=== PATIENT | female | born 1945 | race African-American/Black ===

== ENCOUNTER 2017-11-08 14:45 | Inpatient (IN) ==
[2017-11-08] MEDS ORDERED: ASPIRIN 325 MG TABLET PO STA (16:53)
[2017-11-08] MEDS ORDERED: NITROGLYCERIN SL 0.4 MG TABLET SL PRN (16:53)
[2017-11-08] MEDS ORDERED: ASPIRIN 325 MG TABLET ONE (17:01)
[2017-11-08 17:56] LABS: Basophils % 0.4 % (0.0-0.8); Eosinophils % 0.4 % (0.00-10.9); Hematocrit 37.2 VOL% (35.7-47.0); Hemoglobin 12.3 GM/DL (12.0-16.0); Immature Granulocytes % 0.1 %; Immature Granulocytes Absolute 0.01 #; Lymphocytes # 1.8 10*3/uL (1.4-4.0); Lymphocytes % 26.5 % (21.3-54.2); Mean Corpuscular HGB Conc 33.1 GM/DL (32-36); Mean Corpuscular Hemoglobin 23 PG (27-34); Mean Corpuscular Volume 70.6 FL (87-102); Monocytes # 0.6 10*3/uL (0.11-0.8); Monocytes % 8.3 % (1.7-12.7); Neutrophils # 4.3 10*3/uL (1.4-7.4); Neutrophils % 64.3 % (38.7-73.9); Platelet Count 171 T/CUMM (130-400); Red Blood Count 5.27 MC/CUMM (3.8-5.5); Red Cell Distribution Width 17.5 % (9.3-17.3); White Blood Count 6.7 T/CUMM (4-12)
[2017-11-08 18:05] LABS: INR 1.6; PT Patient Result 16.4 SECS
[2017-11-08 18:24] LABS: Albumin 3.2 G/DL (3.4-5.0); Bilirubin,Total 0.8 MG/DL (0.2-1.0); Calcium 8.9 MG/DL (8.5-10.1); Potassium 3.7 MMOL/L (3.5-5.1); Total Protein 7.1 G/DL (6.4-8.3)
[2017-11-08] MEDS ORDERED: MORPHINE 2 MG/1 ML SYRINGE IV PRN (23:10)
[2017-11-09] MEDS: PROMETHAZINE 25 MG TABLET PO PRN ×2 (03:16→09:35)
[2017-11-09] MEDS ORDERED: POLYETHYLENE GLYCOL POWDER 17 GM PACK PO PRN (10:49)
[2017-11-09] MEDS ORDERED: PROMETHAZINE 25 MG TABLET PO PRN (10:49)
[2017-11-09] MEDS ORDERED: DEXTROSE 50% 25 GM/50 ML VIAL IV PRN (10:55)
[2017-11-09] MEDS ORDERED: GLUCAGON 1 MG VIAL IM PRN (10:55)
[2017-11-09] MEDS ORDERED: ONDANSETRON ODT 4 MG TABLET PO PRN (11:30)
[2017-11-09] MEDS ORDERED: MELATONIN 3 MG TABLET PO PRN (11:30)
[2017-11-09] MEDS: ALBUTEROL/IPRATROPIUM 3 ML NEB RESP TX SCH ×2 (11:36→19:55)
[2017-11-09] MEDS: INSULIN REGULAR 100 UNIT/ML SUBCUT SCH ×3 (12:40→21:03)
[2017-11-09] MEDS: ESCITALOPRAM 10 MG TABLET PO SCH (12:41)
[2017-11-09] MEDS: METOPROLOL SUCCINATE XL 25 MG TABLET PO SCH (12:41)
[2017-11-09] MEDS: DOCUSATE SODIUM 100 MG CAPSULE PO SCH (12:41)
[2017-11-09] MEDS: DILTIAZEM CD 180 MG CAPSULE PO SCH (12:41)
[2017-11-09] MEDS: PANTOPRAZOLE 40 MG TABLET PO SCH (12:41)
[2017-11-09 15:31] LABS: Apearance,Urine CLEAR (Clear); Bacteria,Urine Occasional /HPF (Few); Bilirubin,Urine Negative (Negative); Blood, Urine Negative (Negative); Glucose,Urine (UA) >=500 mg/dL (Negative); Ketones,Urine Negative (Negative); Nitrite,Urine Negative (Negative); Protein,Urine Negative; Squamous Epithelial Cell,Urine Occasional /HPF (0-10); Urine Color Straw (Yellow); Urine Specific Gravity 1.002 (1.001-1.035); WBC,Urine <1 /HPF (0-6)
[2017-11-09] MEDS: BACLOFEN 10 MG TABLET PO SCH ×2 (15:36→20:15)
[2017-11-09] MEDS: SIMETHICONE CHEW 125 MG TABLET PO SCH (15:36)
[2017-11-09] MEDS: WARFARIN 5 MG TABLET PO SCH (18:00)
[2017-11-10 07:11] LABS: INR 1.6; PT Patient Result 16.7 SECS
[2017-11-10] MEDS: ALBUTEROL/IPRATROPIUM 3 ML NEB RESP TX SCH ×2 (07:38→21:00)
[2017-11-10 07:41] LABS: Potassium 3.8 MMOL/L (3.5-5.1); Risk Ratio 2.58; VLDL CHOLESTEROL 11.4 MG/DL
[2017-11-10] MEDS: SIMETHICONE CHEW 125 MG TABLET PO SCH ×2 (08:37→15:35)
[2017-11-10] MEDS: DOCUSATE SODIUM 100 MG CAPSULE PO SCH (08:37)
[2017-11-10] MEDS: PANTOPRAZOLE 40 MG TABLET PO SCH (08:37)
[2017-11-10] MEDS: BACLOFEN 10 MG TABLET PO SCH ×3 (08:37→22:46)
[2017-11-10] MEDS: ESCITALOPRAM 10 MG TABLET PO SCH (08:37)
[2017-11-10] MEDS: METOPROLOL SUCCINATE XL 25 MG TABLET PO SCH (09:29)
[2017-11-10] MEDS: DILTIAZEM CD 180 MG CAPSULE PO SCH (09:29)
[2017-11-10] MEDS: INSULIN REGULAR 100 UNIT/ML SUBCUT SCH ×4 (09:30→22:46)
[2017-11-10] MEDS ORDERED: LIDOCAINE 2% 5 ML VIAL ONE (12:44)
[2017-11-10] MEDS ORDERED: PROPOFOL 200 MG/20 ML VIAL IV ONE (12:44)
[2017-11-10] MEDS: WARFARIN 5 MG TABLET PO SCH (17:41)
[2017-11-10] MEDS ORDERED: SKIN HEALING OINT (AQUAPHOR) 50 GM TUBE TOP PRN (17:44)
[2017-11-11 03:49] LABS: INR 1.9; PT Patient Result 19.2 SECS
[2017-11-11 04:17] LABS: Risk Ratio 2.57
[2017-11-11 04:18] LABS: Calcium 8.1 MG/DL (8.5-10.1); Potassium 3.6 MMOL/L (3.5-5.1)
[2017-11-11] MEDS: ALBUTEROL/IPRATROPIUM 3 ML NEB RESP TX SCH (07:41)
[2017-11-11] MEDS: DILTIAZEM CD 180 MG CAPSULE PO SCH (09:09)
[2017-11-11] MEDS: METOPROLOL SUCCINATE XL 25 MG TABLET PO SCH (09:09)
[2017-11-11] MEDS: BACLOFEN 10 MG TABLET PO SCH ×2 (09:10→16:06)
[2017-11-11] MEDS: SIMETHICONE CHEW 125 MG TABLET PO SCH ×2 (09:10→16:07)
[2017-11-11] MEDS: DOCUSATE SODIUM 100 MG CAPSULE PO SCH (09:10)
[2017-11-11] MEDS: PANTOPRAZOLE 40 MG TABLET PO SCH (09:10)
[2017-11-11] MEDS: ESCITALOPRAM 10 MG TABLET PO SCH (09:10)
[2017-11-11] MEDS: INSULIN REGULAR 100 UNIT/ML SUBCUT SCH (16:06)
[2017-11-11 17:01] VITALS: BP 162/77
[2017-11-12] MEDS ORDERED: WARFARIN 4 MG TABLET PO SCH (18:00)
== END 2017-11-11 16:27 | disposition home health service (06) | DRG 313 ==
LOC: N.ED 14:45 → N.EDINP 14:45 → N.2E 20:07
PROVIDERS: ADMIT Internal Medicine; ATTEND Internal Medicine

== ENCOUNTER 2018-11-20 13:32 | Inpatient (IN) ==
[2018-11-20] MEDS ORDERED: methylPREDNISolone SOD SUC 125 MG/2 ML VIAL IV STA (15:15)
[2018-11-20] MEDS ORDERED: ALBUTEROL/IPRATROPIUM 3 ML NEB RESP TX STA (15:15)
[2018-11-20] MEDS ORDERED: methylPREDNISolone SOD SUC 125 MG/2 ML VIAL ONE (15:39)
[2018-11-20 15:52] LABS: Basophils % 0.5 % (0.0-0.8); Eosinophils # 0.1 10*3/uL (0.0-0.87); Eosinophils % 2.2 % (0.00-10.9); Hemoglobin 10.1 GM/DL (12.0-16.0); Immature Granulocytes % 0.5 %; Immature Granulocytes Absolute 0.03 #; Lymphocytes # 2.1 10*3/uL (1.4-4.0); Lymphocytes % 33.2 % (21.3-54.2); Mean Corpuscular HGB Conc 30.6 GM/DL (32-36); Mean Corpuscular Hemoglobin 22 PG (27-34); Mean Corpuscular Volume 71.7 FL (87-102); Monocytes # 0.8 10*3/uL (0.11-0.8); Monocytes % 13.1 % (1.7-12.7); NRBC # 0.02 10*3/uL; Neutrophils # 3.2 10*3/uL (1.4-7.4); Neutrophils % 50.5 % (38.7-73.9); Platelet Count 151 T/CUMM (130-400); Red Cell Distribution Width 19.5 % (9.3-17.3); White Blood Count 6.4 T/CUMM (4-12)
[2018-11-20] MEDS ORDERED: FUROSEMIDE 40 MG/4 ML VIAL IV STA (16:04)
[2018-11-20 16:29] LABS: Albumin 2.8 G/DL (3.4-5.0); Bilirubin,Total 0.6 MG/DL (0.2-1.0); Calcium 8.3 MG/DL (8.5-10.1); Osmolality,Calculated 283.8 MOS/KG (273-304); Potassium 4.9 MMOL/L (3.5-5.1); Total Protein 6.4 G/DL (6.4-8.3)
[2018-11-20] MEDS ORDERED: FUROSEMIDE 40 MG/4 ML VIAL ONE (16:31)
[2018-11-20 18:15] LABS: INR 2.3
[2018-11-20 18:19] LABS: PT Patient Result 25.2 SECS
[2018-11-20 19:38] LABS: Troponin I < 0.015 NG/ML (0.00-0.045)
[2018-11-20] MEDS ORDERED: FUROSEMIDE 40 MG/4 ML VIAL IV ONE (22:30)
[2018-11-20] MEDS ORDERED: PROMETHAZINE 25 MG TABLET PO PRN (22:31)
[2018-11-20] MEDS ORDERED: POLYETHYLENE GLYCOL POWDER 17 GM PACK PO PRN (22:31)
[2018-11-20] MEDS ORDERED: ACETAMINOPHEN 325 MG TABLET PO PRN (22:31)
[2018-11-20] MEDS ORDERED: cloNIDine 0.1 MG TABLET PO PRN (22:31)
[2018-11-20] MEDS ORDERED: MELATONIN 3 MG TABLET PO PRN (22:31)
[2018-11-20] MEDS ORDERED: ONDANSETRON ODT 4 MG TABLET PO PRN (22:31)
[2018-11-20] MEDS ORDERED: BUTALBITAL/ACETAMIN/CAFFEINE 50-325-40 MG TABLET PO PRN (22:35)
[2018-11-20] MEDS: methylPREDNISolone SOD SUC 40 MG/1 ML VIAL IV SCH (23:08)
[2018-11-21] MEDS: ALBUTEROL/IPRATROPIUM 3 ML NEB RESP TX SCH ×4 (00:23→19:45)
[2018-11-21 04:35] LABS: Basophils % 0.1 % (0.0-0.8); Hematocrit 33.8 VOL% (35.7-47.0); Hemoglobin 10.4 GM/DL (12.0-16.0); Immature Granulocytes % 0.5 %; Immature Granulocytes Absolute 0.04 #; Lymphocytes # 0.8 10*3/uL (1.4-4.0); Lymphocytes % 10.8 % (21.3-54.2); Mean Corpuscular HGB Conc 30.8 GM/DL (32-36); Mean Corpuscular Hemoglobin 22 PG (27-34); Mean Corpuscular Volume 70.1 FL (87-102); Monocytes # 0.1 10*3/uL (0.11-0.8); Monocytes % 0.9 % (1.7-12.7); Neutrophils # 6.8 10*3/uL (1.4-7.4); Neutrophils % 87.7 % (38.7-73.9); Platelet Count 178 T/CUMM (130-400); Red Blood Count 4.82 MC/CUMM (3.8-5.5); Red Cell Distribution Width 19.2 % (9.3-17.3); White Blood Count 7.7 T/CUMM (4-12)
[2018-11-21 04:39] LABS: Calcium 8.6 MG/DL (8.5-10.1); Osmolality,Calculated 291.4 MOS/KG (273-304)
[2018-11-21 05:03] LABS: INR 1.7; PT Patient Result 18.3 SECS
[2018-11-21 07:39] LABS: Lymphocytes 8 % (20-55); Platelet Estimate Normal; Segmented Neutrophils 91 % (50-85); Total Cells Counted 100
[2018-11-21] MEDS: PANTOPRAZOLE 40 MG TABLET PO SCH ×2 (09:13→18:19)
[2018-11-21] MEDS: DULoxetine 30 MG CAPSULE PO SCH (09:13)
[2018-11-21] MEDS: POTASSIUM CHLORIDE 20 MEQ TABLET PO SCH ×2 (09:13→20:57)
[2018-11-21] MEDS: BACLOFEN 20 MG TABLET PO SCH ×3 (09:13→20:57)
[2018-11-21] MEDS: DILTIAZEM CD 180 MG CAPSULE PO SCH (09:13)
[2018-11-21] MEDS: DOCUSATE SODIUM 100 MG CAPSULE PO SCH (09:13)
[2018-11-21] MEDS: METOPROLOL SUCCINATE XL 25 MG TABLET PO SCH (09:13)
[2018-11-21] MEDS: methylPREDNISolone SOD SUC 40 MG/1 ML VIAL IV SCH ×2 (09:13→16:03)
[2018-11-21] MEDS: FUROSEMIDE 40 MG/4 ML VIAL IV SCH ×2 (09:14→16:02)
[2018-11-21] MEDS: INSULIN NPH/REGULAR 70/30 100 UNIT/ML SUBCUT SCH ×2 (09:14→18:19)
[2018-11-21] MEDS ORDERED: MAGNESIUM SULF RIDER 2 GM in PREMIX 1 EACH IV ONE (13:17)
[2018-11-21] MEDS: AZITHROMYCIN INJ 250 MG in SODIUM CHLORIDE 0.9% 250 ML IV SCH (16:02)
[2018-11-21] MEDS: WARFARIN 5 MG TABLET PO SCH (18:19)
[2018-11-21] MEDS: INSULIN REGULAR 100 UNIT/ML SUBCUT SCH (20:57)
[2018-11-22] MEDS: methylPREDNISolone SOD SUC 40 MG/1 ML VIAL IV SCH ×3 (00:16→17:29)
[2018-11-22] MEDS: INSULIN REGULAR 100 UNIT/ML SUBCUT SCH ×5 (00:40→21:57)
[2018-11-22] MEDS: ALBUTEROL/IPRATROPIUM 3 ML NEB RESP TX SCH ×4 (01:50→19:19)
[2018-11-22 04:35] LABS: Hematocrit 34.3 VOL% (35.7-47.0); Hemoglobin 10.7 GM/DL (12.0-16.0); Immature Granulocytes % 0.6 %; Immature Granulocytes Absolute 0.08 #; Lymphocytes # 0.8 10*3/uL (1.4-4.0); Lymphocytes % 6.3 % (21.3-54.2); Mean Corpuscular HGB Conc 31.2 GM/DL (32-36); Mean Corpuscular Hemoglobin 22 PG (27-34); Mean Corpuscular Volume 69.9 FL (87-102); Monocytes # 0.7 10*3/uL (0.11-0.8); NRBC # 0.02 10*3/uL; Neutrophils # 11.8 10*3/uL (1.4-7.4); Neutrophils % 88.1 % (38.7-73.9); Platelet Count 185 T/CUMM (130-400); Red Blood Count 4.91 MC/CUMM (3.8-5.5); Red Cell Distribution Width 18.9 % (9.3-17.3); White Blood Count 13.4 T/CUMM (4-12)
[2018-11-22 04:43] LABS: Calcium 8.6 MG/DL (8.5-10.1); Osmolality,Calculated 293.5 MOS/KG (273-304); Potassium 4.3 MMOL/L (3.5-5.1)
[2018-11-22 05:09] LABS: Anisocytosis 1+; Platelet Estimate Normal
[2018-11-22 05:10] LABS: Giant Platelets Few; Poikilocytosis Slight; Target Cells 1+; Tear Drop Cells Few
[2018-11-22] MEDS: METOPROLOL SUCCINATE XL 25 MG TABLET PO SCH (10:09)
[2018-11-22] MEDS: DILTIAZEM CD 180 MG CAPSULE PO SCH (10:09)
[2018-11-22] MEDS: POTASSIUM CHLORIDE 20 MEQ TABLET PO SCH ×2 (10:09→21:57)
[2018-11-22] MEDS: DULoxetine 30 MG CAPSULE PO SCH (10:09)
[2018-11-22] MEDS: FUROSEMIDE 40 MG/4 ML VIAL IV SCH ×2 (10:10→17:26)
[2018-11-22] MEDS: PANTOPRAZOLE 40 MG TABLET PO SCH ×2 (10:10→17:29)
[2018-11-22] MEDS: DOCUSATE SODIUM 100 MG CAPSULE PO SCH (10:10)
[2018-11-22] MEDS: INSULIN NPH/REGULAR 70/30 100 UNIT/ML SUBCUT SCH ×2 (10:17→17:25)
[2018-11-22] MEDS: BACLOFEN 20 MG TABLET PO SCH ×3 (10:17→21:58)
[2018-11-22] MEDS: AZITHROMYCIN INJ 250 MG in SODIUM CHLORIDE 0.9% 250 ML IV SCH (14:50)
[2018-11-22] MEDS: WARFARIN 5 MG TABLET PO SCH (17:29)
[2018-11-23] MEDS: ALBUTEROL/IPRATROPIUM 3 ML NEB RESP TX SCH ×4 (00:24→19:39)
[2018-11-23] MEDS: BUDESONIDE 0.25 MG/2 ML NEB RESP TX SCH ×3 (00:27→19:39)
[2018-11-23] MEDS: INSULIN REGULAR 100 UNIT/ML SUBCUT SCH ×5 (00:47→22:56)
[2018-11-23 03:43] LABS: Basophils % 0.1 % (0.0-0.8); Hematocrit 34.2 VOL% (35.7-47.0); Hemoglobin 10.6 GM/DL (12.0-16.0); Immature Granulocytes % 0.6 %; Immature Granulocytes Absolute 0.09 #; Lymphocytes % 6.8 % (21.3-54.2); Mean Corpuscular Hemoglobin 22 PG (27-34); Mean Corpuscular Volume 70.2 FL (87-102); Monocytes # 0.8 10*3/uL (0.11-0.8); Monocytes % 5.4 % (1.7-12.7); Neutrophils # 12.4 10*3/uL (1.4-7.4); Neutrophils % 87.1 % (38.7-73.9); Platelet Count 188 T/CUMM (130-400); Red Blood Count 4.87 MC/CUMM (3.8-5.5); Red Cell Distribution Width 18.6 % (9.3-17.3); White Blood Count 14.3 T/CUMM (4-12)
[2018-11-23 03:52] LABS: INR 1.9; PT Patient Result 20.6 SECS
[2018-11-23 04:02] LABS: Calcium 8.6 MG/DL (8.5-10.1); Osmolality,Calculated 288.4 MOS/KG (273-304); Potassium 4.2 MMOL/L (3.5-5.1)
[2018-11-23 04:31] LABS: Polychromasia Few
[2018-11-23 04:32] LABS: Macrocytosis 1+
[2018-11-23] MEDS: METOPROLOL SUCCINATE XL 25 MG TABLET PO SCH (09:11)
[2018-11-23] MEDS: DOCUSATE SODIUM 100 MG CAPSULE PO SCH (09:11)
[2018-11-23] MEDS: DILTIAZEM CD 180 MG CAPSULE PO SCH (09:12)
[2018-11-23] MEDS: DULoxetine 30 MG CAPSULE PO SCH (09:12)
[2018-11-23] MEDS: POTASSIUM CHLORIDE 20 MEQ TABLET PO SCH ×2 (09:12→22:55)
[2018-11-23] MEDS: PANTOPRAZOLE 40 MG TABLET PO SCH ×2 (09:12→17:12)
[2018-11-23] MEDS: BACLOFEN 20 MG TABLET PO SCH ×2 (09:12→15:35)
[2018-11-23] MEDS: INSULIN NPH/REGULAR 70/30 100 UNIT/ML SUBCUT SCH ×2 (09:13→17:12)
[2018-11-23] MEDS: methylPREDNISolone SOD SUC 40 MG/1 ML VIAL IV SCH ×2 (09:14→22:57)
[2018-11-23] MEDS: FUROSEMIDE 40 MG/4 ML VIAL IV SCH ×2 (09:16→15:35)
[2018-11-23] MEDS ORDERED: TUBERCULIN SKIN TEST 0.1 ML SYRINGE INTRADERM ONE (09:51)
[2018-11-23] MEDS ORDERED: cloNIDine 0.1 MG TABLET PO SCH (10:30)
[2018-11-23] MEDS: AZITHROMYCIN INJ 250 MG in SODIUM CHLORIDE 0.9% 250 ML IV SCH (15:38)
[2018-11-23] MEDS: WARFARIN 5 MG TABLET PO SCH (17:12)
[2018-11-23] MEDS: cloNIDine 0.1 MG TABLET PO SCH (22:56)
[2018-11-24] MEDS: BACLOFEN 20 MG TABLET PO SCH ×4 (00:23→22:18)
[2018-11-24] MEDS: ALBUTEROL/IPRATROPIUM 3 ML NEB RESP TX SCH ×4 (01:52→20:04)
[2018-11-24 06:02] LABS: Basophils % 0.1 % (0.0-0.8); Hematocrit 36.5 VOL% (35.7-47.0); Hemoglobin 11.1 GM/DL (12.0-16.0); Immature Granulocytes % 0.5 %; Immature Granulocytes Absolute 0.05 #; Lymphocytes % 9.1 % (21.3-54.2); Mean Corpuscular HGB Conc 30.4 GM/DL (32-36); Mean Corpuscular Hemoglobin 21 PG (27-34); Mean Corpuscular Volume 70.5 FL (87-102); Monocytes # 0.5 10*3/uL (0.11-0.8); Monocytes % 4.8 % (1.7-12.7); Neutrophils # 9.5 10*3/uL (1.4-7.4); Neutrophils % 85.5 % (38.7-73.9); Platelet Count 199 T/CUMM (130-400); Red Blood Count 5.18 MC/CUMM (3.8-5.5); Red Cell Distribution Width 19.2 % (9.3-17.3); White Blood Count 11.1 T/CUMM (4-12)
[2018-11-24 06:22] LABS: INR 2.3
[2018-11-24 06:23] LABS: PT Patient Result 24.5 SECS
[2018-11-24 06:24] LABS: Hypochromasia 1+; Macrocytosis Slight; Ovalocytes Slight; Platelet Estimate Adequate; Polychromasia Slight; Target Cells Few
[2018-11-24 06:27] LABS: Calcium 8.7 MG/DL (8.5-10.1); Osmolality,Calculated 286.5 MOS/KG (273-304); Potassium 4.5 MMOL/L (3.5-5.1)
[2018-11-24] MEDS: BUDESONIDE 0.25 MG/2 ML NEB RESP TX SCH ×2 (07:01→20:04)
[2018-11-24] MEDS ORDERED: GLYCOPYRROLATE 0.4 MG/2 ML VIAL IM ONE (07:30)
[2018-11-24] MEDS ORDERED: PROMETHAZINE 25 MG/1 ML VIAL IM ONE (07:30)
[2018-11-24] MEDS ORDERED: MEPERIDINE 50 MG/1 ML VIAL IM ONE (07:30)
[2018-11-24] MEDS ORDERED: MIDAZOLAM 2 MG/2 ML VIAL IV ONE (08:00)
[2018-11-24] MEDS ORDERED: LIDOCAINE 2% VISCOUS 100 ML BOTTLE SWISH/SPIT ONE (08:00)
[2018-11-24] MEDS ORDERED: LIDOCAINE 2% 20 ML VIAL RESP TX ONE (08:00)
[2018-11-24] MEDS ORDERED: LIDOCAINE 1% 20 ML VIAL MISC INJ ONE (08:00)
[2018-11-24] MEDS: INSULIN REGULAR 100 UNIT/ML SUBCUT SCH ×5 (08:18→22:21)
[2018-11-24] MEDS ORDERED: MIDAZOLAM 2 MG/2 ML VIAL ONE (09:01)
[2018-11-24] MEDS: DULoxetine 30 MG CAPSULE PO SCH (11:30)
[2018-11-24] MEDS: cloNIDine 0.1 MG TABLET PO SCH ×3 (11:30→22:26)
[2018-11-24] MEDS: GLIMEPIRIDE 2 MG TABLET PO SCH (11:30)
[2018-11-24] MEDS: DOCUSATE SODIUM 100 MG CAPSULE PO SCH (11:30)
[2018-11-24] MEDS: METOPROLOL SUCCINATE XL 25 MG TABLET PO SCH (11:30)
[2018-11-24] MEDS: PANTOPRAZOLE 40 MG TABLET PO SCH ×2 (11:31→17:48)
[2018-11-24] MEDS: DILTIAZEM CD 180 MG CAPSULE PO SCH (11:31)
[2018-11-24] MEDS: POTASSIUM CHLORIDE 20 MEQ TABLET PO SCH ×2 (11:31→22:19)
[2018-11-24] MEDS: methylPREDNISolone SOD SUC 40 MG/1 ML VIAL IV SCH ×2 (11:31→22:22)
[2018-11-24] MEDS: INSULIN NPH/REGULAR 70/30 100 UNIT/ML SUBCUT SCH ×2 (11:32→17:48)
[2018-11-24] MEDS: FUROSEMIDE 40 MG/4 ML VIAL IV SCH ×2 (11:32→16:33)
[2018-11-24] MEDS: AZITHROMYCIN INJ 250 MG in SODIUM CHLORIDE 0.9% 250 ML IV SCH (15:40)
[2018-11-24] MEDS: WARFARIN 5 MG TABLET PO SCH (17:48)
[2018-11-25] MEDS: ALBUTEROL/IPRATROPIUM 3 ML NEB RESP TX SCH ×2 (01:40→07:16)
[2018-11-25] MEDS: BUDESONIDE 0.25 MG/2 ML NEB RESP TX SCH (07:16)
[2018-11-25 08:12] VITALS: BP 134/77
[2018-11-25] MEDS: BACLOFEN 20 MG TABLET PO SCH (08:31)
[2018-11-25] MEDS: GLIMEPIRIDE 2 MG TABLET PO SCH (08:31)
[2018-11-25] MEDS: INSULIN REGULAR 100 UNIT/ML SUBCUT SCH (08:32)
[2018-11-25] MEDS: POTASSIUM CHLORIDE 20 MEQ TABLET PO SCH (08:32)
[2018-11-25] MEDS: METOPROLOL SUCCINATE XL 25 MG TABLET PO SCH (08:32)
[2018-11-25] MEDS: PANTOPRAZOLE 40 MG TABLET PO SCH (08:32)
[2018-11-25] MEDS: INSULIN NPH/REGULAR 70/30 100 UNIT/ML SUBCUT SCH (08:32)
[2018-11-25] MEDS: cloNIDine 0.1 MG TABLET PO SCH (08:32)
[2018-11-25] MEDS: DULoxetine 30 MG CAPSULE PO SCH (08:32)
[2018-11-25] MEDS: DOCUSATE SODIUM 100 MG CAPSULE PO SCH (08:32)
[2018-11-25] MEDS: DILTIAZEM CD 180 MG CAPSULE PO SCH (08:32)
[2018-11-25] MEDS: methylPREDNISolone SOD SUC 40 MG/1 ML VIAL IV SCH (08:33)
[2018-11-25] MEDS: FUROSEMIDE 40 MG/4 ML VIAL IV SCH (08:33)
[2018-11-25] MEDS ORDERED: WARFARIN 4 MG TABLET PO SCH (18:00)
== END 2018-11-25 11:29 | disposition swing bed (61) | DRG 291 ==
LOC: N.ED 13:32 → N.EDINP 16:51 → N.TELES 18:00
PROVIDERS: ADMIT Internal Medicine; ATTEND Internal Medicine

== ENCOUNTER 2019-06-18 14:09 | Inpatient (IN) ==
[2019-06-18] MEDS ORDERED: SODIUM CHLORIDE 0.9% 1,000 ML IV STA (15:29)
[2019-06-18 15:50] LABS: Albumin 3.3 G/DL (3.4-5.0); Bilirubin,Total 0.8 MG/DL (0.2-1.0); Calcium 8.9 MG/DL (8.5-10.1); Osmolality,Calculated 284.1 MOS/KG (273-304); Total Protein 7.5 G/DL (6.4-8.3)
[2019-06-18 16:02] LABS: Basophils % 0.5 % (0.0-0.8); Eosinophils # 0.1 10*3/uL (0.0-0.87); Eosinophils % 1.2 % (0.00-10.9); Hematocrit 37.1 VOL% (35.7-47.0); Immature Granulocytes % 0.3 %; Immature Granulocytes Absolute 0.02 #; Lymphocytes # 1.3 10*3/uL (1.4-4.0); Lymphocytes % 22.8 % (21.3-54.2); Mean Corpuscular HGB Conc 29.6 GM/DL (32-36); Mean Corpuscular Volume 71.3 FL (87-102); Monocytes % 8.3 % (1.7-12.7); Neutrophils % 66.9 % (38.7-73.9); Platelet Count 198 T/CUMM (130-400); Red Cell Distribution Width 20.1 % (9.3-17.3); White Blood Count 5.8 T/CUMM (4-12)
[2019-06-18 16:23] LABS: Total Cells Counted 100
[2019-06-18 16:24] LABS: Hypochromasia Slight; Lymphocytes 24 % (20-55); Microcytosis 1+; Ovalocytes Slight; Platelet Estimate Normal; Polychromasia Slight; Segmented Neutrophils 68 % (50-85)
[2019-06-18] MEDS ORDERED: ONDANSETRON 4 MG/2 ML VIAL IV STA (16:47)
[2019-06-18 17:06] LABS: Apearance,Urine CLEAR (Clear); Bacteria,Urine Few /HPF (Few); Bilirubin,Urine Negative (Negative); Blood, Urine Small mg/dL (Negative); Glucose,Urine (UA) Negative (Negative); Ketones,Urine Negative (Negative); Nitrite,Urine Negative (Negative); Protein,Urine Negative; RBC,Urine 1 /HPF (0-4); Squamous Epithelial Cell,Urine Occasional /HPF (0-10); Urine Color Yellow (Yellow); Urine Specific Gravity 1.008 (1.001-1.035); WBC,Urine 1 /HPF (0-6)
[2019-06-18] MEDS ORDERED: POLYETHYLENE GLYCOL POWDER 17 GM PACK PO PRN (20:13)
[2019-06-18] MEDS ORDERED: MELATONIN 3 MG TABLET PO PRN (21:00)
[2019-06-18] MEDS ORDERED: PSYLLIUM HUSK 0.4 GM PO SCH (21:00)
[2019-06-18] MEDS: DOCUSATE SODIUM 100 MG CAPSULE PO SCH (22:10)
[2019-06-18] MEDS: ATORVASTATIN 20 MG TABLET PO SCH (22:10)
[2019-06-18] MEDS: POTASSIUM CHLORIDE 20 MEQ TABLET PO SCH (22:15)
[2019-06-18] MEDS: BACLOFEN 20 MG TABLET PO SCH (22:15)
[2019-06-18] MEDS: SODIUM CHLORIDE 0.9% 1,000 ML IV SCH (22:15)
[2019-06-18] MEDS: cloNIDine 0.1 MG TABLET PO PRN (22:22)
[2019-06-18] MEDS: ACETAMINOPHEN 325 MG TABLET PO PRN (22:24)
[2019-06-19 05:38] LABS: Basophils % 0.5 % (0.0-0.8); Eosinophils # 0.1 10*3/uL (0.0-0.87); Hematocrit 33.5 VOL% (35.7-47.0); Hemoglobin 10.2 GM/DL (12.0-16.0); Immature Granulocytes % 0.2 %; Immature Granulocytes Absolute 0.01 #; Lymphocytes # 1.7 10*3/uL (1.4-4.0); Lymphocytes % 27.1 % (21.3-54.2); Mean Corpuscular HGB Conc 30.4 GM/DL (32-36); Mean Corpuscular Volume 69.9 FL (87-102); Monocytes % 10.8 % (1.7-12.7); Neutrophils % 59.4 % (38.7-73.9); Platelet Count 153 T/CUMM (130-400); Red Blood Count 4.79 MC/CUMM (3.8-5.5); Red Cell Distribution Width 19.1 % (9.3-17.3); White Blood Count 6.1 T/CUMM (4-12)
[2019-06-19 05:42] LABS: Calcium 8.6 MG/DL (8.5-10.1); Osmolality,Calculated 288.7 MOS/KG (273-304)
[2019-06-19 05:56] LABS: Anisocytosis 1+; Hypochromasia 1+; Microcytosis 1+; Ovalocytes Few; Target Cells Slight; Tear Drop Cells Few
[2019-06-19 05:57] LABS: Platelet Estimate Adequate; Poikilocytosis 1+; Polychromasia Slight
[2019-06-19 07:34] LABS: INR 1.7; PT Patient Result 18.7 SECS
[2019-06-19] MEDS ORDERED: PANTOPRAZOLE 40 MG TABLET PO SCH (09:00)
[2019-06-19] MEDS: ONDANSETRON 4 MG/2 ML VIAL IV PRN (09:11)
[2019-06-19] MEDS: INSULIN NPH/REGULAR 70/30 100 UNIT/ML SUBCUT SCH ×2 (09:12→16:56)
[2019-06-19] MEDS: SIMETHICONE CHEW 125 MG TABLET PO SCH ×2 (09:13→16:56)
[2019-06-19] MEDS: POTASSIUM CHLORIDE 20 MEQ TABLET PO SCH ×2 (09:13→21:42)
[2019-06-19] MEDS: DOCUSATE SODIUM 100 MG CAPSULE PO SCH ×2 (09:13→21:42)
[2019-06-19] MEDS: DULoxetine 30 MG CAPSULE PO SCH (09:13)
[2019-06-19] MEDS: BACLOFEN 20 MG TABLET PO SCH ×3 (09:13→21:42)
[2019-06-19] MEDS: METOPROLOL SUCCINATE XL 25 MG TABLET PO SCH (09:13)
[2019-06-19] MEDS: DILTIAZEM CD 180 MG CAPSULE PO SCH (09:13)
[2019-06-19] MEDS: PANTOPRAZOLE 40 MG TABLET PO SCH ×2 (09:14→16:56)
[2019-06-19] MEDS: LORATADINE 10 MG TABLET PO SCH (09:14)
[2019-06-19] MEDS: SODIUM CHLORIDE 0.9% 1,000 ML IV SCH (14:16)
[2019-06-19] MEDS: cloNIDine 0.1 MG TABLET PO PRN (14:19)
[2019-06-19] MEDS: ACETAMINOPHEN 325 MG TABLET PO PRN (14:19)
[2019-06-19] MEDS: WARFARIN 5 MG TABLET PO SCH (17:31)
[2019-06-19] MEDS: cloNIDine 0.1 MG TABLET PO SCH (21:42)
[2019-06-19] MEDS: INSULIN REGULAR 100 UNIT/ML SUBCUT SCH (21:42)
[2019-06-19] MEDS: ATORVASTATIN 20 MG TABLET PO SCH (21:42)
[2019-06-20] MEDS: SODIUM CHLORIDE 0.9% 1,000 ML IV SCH ×2 (00:55→20:26)
[2019-06-20 05:38] LABS: Calcium 8.1 MG/DL (8.5-10.1); Osmolality,Calculated 290.7 MOS/KG (273-304)
[2019-06-20] MEDS ORDERED: LACTATED RINGERS 1,000 ML IV SCH (08:00)
[2019-06-20] MEDS: INSULIN REGULAR 100 UNIT/ML SUBCUT SCH ×4 (08:00→20:19)
[2019-06-20] MEDS: SIMETHICONE CHEW 125 MG TABLET PO SCH ×2 (08:00→15:16)
[2019-06-20] MEDS: INSULIN NPH/REGULAR 70/30 100 UNIT/ML SUBCUT SCH ×2 (08:45→17:25)
[2019-06-20] MEDS: DOCUSATE SODIUM 100 MG CAPSULE PO SCH ×2 (09:00→20:19)
[2019-06-20] MEDS ORDERED: LIDOCAINE 2% 5 ML VIAL ONE (09:00)
[2019-06-20] MEDS ORDERED: PROPOFOL 200 MG/20 ML VIAL IV ONE (09:00)
[2019-06-20] MEDS: BACLOFEN 20 MG TABLET PO SCH ×3 (09:00→20:20)
[2019-06-20] MEDS: POTASSIUM CHLORIDE 20 MEQ TABLET PO SCH ×2 (09:00→20:20)
[2019-06-20] MEDS: cloNIDine 0.1 MG TABLET PO SCH ×3 (09:00→20:19)
[2019-06-20] MEDS: PANTOPRAZOLE 40 MG TABLET PO SCH ×2 (09:00→16:29)
[2019-06-20 09:32] LABS: INR 1.7; PT Patient Result 18.8 SECS
[2019-06-20] MEDS: ONDANSETRON 4 MG/2 ML VIAL IV PRN ×2 (10:35→20:18)
[2019-06-20] MEDS: DILTIAZEM CD 180 MG CAPSULE PO SCH (12:08)
[2019-06-20] MEDS: METOPROLOL SUCCINATE XL 25 MG TABLET PO SCH (12:09)
[2019-06-20] MEDS: DULoxetine 30 MG CAPSULE PO SCH (15:15)
[2019-06-20] MEDS: LORATADINE 10 MG TABLET PO SCH (15:15)
[2019-06-20] MEDS: WARFARIN 5 MG TABLET PO SCH (17:25)
[2019-06-20] MEDS ORDERED: cefTRIAXone 500 MG in SYRINGE 1 EACH IV SCH (19:30)
[2019-06-20] MEDS: ATORVASTATIN 20 MG TABLET PO SCH (20:20)
[2019-06-20] MEDS ORDERED: FUROSEMIDE 20 MG/2 ML VIAL IV ONE (21:28)
[2019-06-20 22:00] LABS: % Iron Saturation 13.3 % (18-50)
[2019-06-21] MEDS: ALBUTEROL/IPRATROPIUM 3 ML NEB RESP TX SCH ×4 (00:56→19:26)
[2019-06-21 04:56] LABS: Basophils % 0.4 % (0.0-0.8); Eosinophils # 0.1 10*3/uL (0.0-0.87); Eosinophils % 2.3 % (0.00-10.9); Hematocrit 31.9 VOL% (35.7-47.0); Hemoglobin 9.7 GM/DL (12.0-16.0); Immature Granulocytes % 0.2 %; Immature Granulocytes Absolute 0.01 #; Lymphocytes # 1.6 10*3/uL (1.4-4.0); Lymphocytes % 32.4 % (21.3-54.2); Mean Corpuscular HGB Conc 30.4 GM/DL (32-36); Mean Corpuscular Volume 69.8 FL (87-102); Monocytes % 11.1 % (1.7-12.7); Neutrophils % 53.6 % (38.7-73.9); Platelet Count 139 T/CUMM (130-400); Red Blood Count 4.57 MC/CUMM (3.8-5.5); White Blood Count 4.9 T/CUMM (4-12)
[2019-06-21 05:33] LABS: Albumin 2.9 G/DL (3.4-5.0); Bilirubin,Total 0.9 MG/DL (0.2-1.0); Calcium 8.5 MG/DL (8.5-10.1); Osmolality,Calculated 291.3 MOS/KG (273-304); Thyroid Stimulating Hormone 3.5 uIU/ml (0.358-3.74); Total Protein 6.1 G/DL (6.4-8.3)
[2019-06-21] MEDS: INSULIN REGULAR 100 UNIT/ML SUBCUT SCH ×4 (08:08→22:18)
[2019-06-21] MEDS: FUROSEMIDE 20 MG/2 ML VIAL IV SCH (09:02)
[2019-06-21] MEDS: INSULIN NPH/REGULAR 70/30 100 UNIT/ML SUBCUT SCH ×2 (09:02→16:53)
[2019-06-21] MEDS: SIMETHICONE CHEW 125 MG TABLET PO SCH ×2 (09:03→16:53)
[2019-06-21] MEDS: POTASSIUM CHLORIDE 20 MEQ TABLET PO SCH ×2 (09:03→22:17)
[2019-06-21] MEDS: cloNIDine 0.1 MG TABLET PO SCH ×3 (09:03→22:17)
[2019-06-21] MEDS: DOCUSATE SODIUM 100 MG CAPSULE PO SCH ×2 (09:03→22:17)
[2019-06-21] MEDS: PANTOPRAZOLE 40 MG TABLET PO SCH ×2 (09:03→16:54)
[2019-06-21] MEDS: METOPROLOL SUCCINATE XL 25 MG TABLET PO SCH (09:03)
[2019-06-21] MEDS: DULoxetine 30 MG CAPSULE PO SCH (09:03)
[2019-06-21] MEDS: DILTIAZEM CD 180 MG CAPSULE PO SCH (09:03)
[2019-06-21] MEDS: LORATADINE 10 MG TABLET PO SCH (09:04)
[2019-06-21] MEDS: BACLOFEN 10 MG TABLET PO SCH ×3 (09:04→22:17)
[2019-06-21] MEDS: ONDANSETRON 4 MG/2 ML VIAL IV PRN (12:07)
[2019-06-21] MEDS ORDERED: MAGNESIUM SULF RIDER 2 GM in PREMIX 1 EACH IV ONE (15:11)
[2019-06-21] MEDS ORDERED: CYANOCOBALAMIN 1000 MCG/1 ML VIAL IM ONE (15:12)
[2019-06-21] MEDS ORDERED: LORATADINE 10 MG TABLET PO ONE (16:00)
[2019-06-21] MEDS: FERROUS SULFATE 325 MG TABLET PO SCH (16:03)
[2019-06-21] MEDS: WARFARIN 5 MG TABLET PO SCH (17:57)
[2019-06-21] MEDS: ATORVASTATIN 10 MG TABLET PO SCH (22:17)
[2019-06-22] MEDS: ALBUTEROL/IPRATROPIUM 3 ML NEB RESP TX SCH ×4 (00:23→19:05)
[2019-06-22 04:53] LABS: Basophils % 0.3 % (0.0-0.8); Eosinophils # 0.1 10*3/uL (0.0-0.87); Eosinophils % 1.9 % (0.00-10.9); Hematocrit 32.7 VOL% (35.7-47.0); Hemoglobin 9.8 GM/DL (12.0-16.0); Immature Granulocytes % 0.3 %; Immature Granulocytes Absolute 0.02 #; Lymphocytes # 1.5 10*3/uL (1.4-4.0); Lymphocytes % 25.6 % (21.3-54.2); Mean Corpuscular Volume 69.9 FL (87-102); Monocytes % 9.5 % (1.7-12.7); Neutrophils % 62.4 % (38.7-73.9); Platelet Count 156 T/CUMM (130-400); Red Blood Count 4.68 MC/CUMM (3.8-5.5); Red Cell Distribution Width 19.4 % (9.3-17.3); White Blood Count 5.8 T/CUMM (4-12)
[2019-06-22 05:06] LABS: INR 1.7; PT Patient Result 18.8 SECS
[2019-06-22 05:12] LABS: Hypochromasia 1+; Microcytosis Slight; Ovalocytes Slight; Platelet Estimate Adequate
[2019-06-22 05:21] LABS: Calcium 8.6 MG/DL (8.5-10.1); Osmolality,Calculated 286.7 MOS/KG (273-304)
[2019-06-22] MEDS ORDERED: LORATADINE 10 MG TABLET PO SCH (09:00)
[2019-06-22] MEDS: PANTOPRAZOLE 40 MG TABLET PO SCH ×2 (09:01→16:46)
[2019-06-22] MEDS: DILTIAZEM CD 180 MG CAPSULE PO SCH (09:01)
[2019-06-22] MEDS: DULoxetine 30 MG CAPSULE PO SCH (09:02)
[2019-06-22] MEDS: LORATADINE 10 MG TABLET PO SCH (09:02)
[2019-06-22] MEDS: SIMETHICONE CHEW 125 MG TABLET PO SCH ×2 (09:02→15:32)
[2019-06-22] MEDS: INSULIN NPH/REGULAR 70/30 100 UNIT/ML SUBCUT SCH ×2 (09:03→16:46)
[2019-06-22] MEDS: BACLOFEN 10 MG TABLET PO SCH ×3 (09:03→21:14)
[2019-06-22] MEDS: DOCUSATE SODIUM 100 MG CAPSULE PO SCH ×2 (09:03→21:15)
[2019-06-22] MEDS: cloNIDine 0.1 MG TABLET PO SCH ×3 (09:03→21:14)
[2019-06-22] MEDS: INSULIN REGULAR 100 UNIT/ML SUBCUT SCH ×4 (09:03→21:16)
[2019-06-22] MEDS: POTASSIUM CHLORIDE 20 MEQ TABLET PO SCH ×2 (09:03→21:13)
[2019-06-22] MEDS: FERROUS SULFATE 325 MG TABLET PO SCH (09:03)
[2019-06-22] MEDS: METOPROLOL SUCCINATE XL 25 MG TABLET PO SCH (09:03)
[2019-06-22] MEDS: FUROSEMIDE 20 MG/2 ML VIAL IV SCH (11:33)
[2019-06-22] MEDS: METOCLOPRAMIDE 5 MG TABLET PO SCH (15:32)
[2019-06-22] MEDS ORDERED: WARFARIN 4 MG TABLET PO SCH (18:00)
[2019-06-22] MEDS: ATORVASTATIN 10 MG TABLET PO SCH (21:14)
[2019-06-23] MEDS: ALBUTEROL/IPRATROPIUM 3 ML NEB RESP TX SCH ×2 (00:05→07:39)
[2019-06-23 06:42] LABS: PT Patient Result 21.3 SECS
[2019-06-23] MEDS: INSULIN REGULAR 100 UNIT/ML SUBCUT SCH (07:54)
[2019-06-23] MEDS: FUROSEMIDE 20 MG/2 ML VIAL IV SCH (08:22)
[2019-06-23] MEDS: INSULIN NPH/REGULAR 70/30 100 UNIT/ML SUBCUT SCH (08:22)
[2019-06-23] MEDS: DULoxetine 30 MG CAPSULE PO SCH (08:22)
[2019-06-23] MEDS: METOCLOPRAMIDE 5 MG TABLET PO SCH (08:22)
[2019-06-23] MEDS: DILTIAZEM CD 180 MG CAPSULE PO SCH (08:23)
[2019-06-23] MEDS: PANTOPRAZOLE 40 MG TABLET PO SCH (08:23)
[2019-06-23] MEDS: DOCUSATE SODIUM 100 MG CAPSULE PO SCH (08:23)
[2019-06-23] MEDS: FERROUS SULFATE 325 MG TABLET PO SCH (08:23)
[2019-06-23] MEDS: cloNIDine 0.1 MG TABLET PO SCH (08:23)
[2019-06-23] MEDS: LORATADINE 10 MG TABLET PO SCH (08:23)
[2019-06-23] MEDS: POTASSIUM CHLORIDE 20 MEQ TABLET PO SCH (08:23)
[2019-06-23] MEDS: BACLOFEN 10 MG TABLET PO SCH (08:23)
[2019-06-23] MEDS: SIMETHICONE CHEW 125 MG TABLET PO SCH (08:23)
[2019-06-23] MEDS: METOPROLOL SUCCINATE XL 25 MG TABLET PO SCH (08:23)
[2019-06-23 09:12] VITALS: BP 141/76
== END 2019-06-23 12:25 | disposition home health service (06) | DRG 74 ==
LOC: N.ED 14:09 → N.EDINP 17:19 → N.5E 18:29
PROVIDERS: ADMIT Internal Medicine; ATTEND Internal Medicine

== ENCOUNTER 2022-07-12 13:44 | Inpatient (IN) ==
[2022-07-12 14:46] LABS: Basophils % 0.4 % (0.0-0.8); Eosinophils % 0.3 % (0.00-10.9); Hematocrit 40.1 VOL% (35.7-47.0); Hemoglobin 12.6 GM/DL (12.0-16.0); Immature Granulocytes % 0.9 %; Immature Granulocytes Absolute 0.06 #; Lymphocytes % 14.4 % (21.3-54.2); Mean Corpuscular HGB Conc 31.4 GM/DL (32-36); Mean Corpuscular Volume 74.8 FL (87-102); Monocytes # 0.4 10*3/uL (0.11-0.8); Monocytes % 6.5 % (1.7-12.7); Neutrophils % 77.5 % (38.7-73.9); Platelet Count 158 T/CUMM (130-400); Red Blood Count 5.36 MC/CUMM (3.8-5.5); White Blood Count 6.7 T/CUMM (4-12)
[2022-07-12 14:50] LABS: Bilirubin,Total 0.4 MG/DL (0.20-1.00); Calcium 8.9 MG/DL (8.5-10.1); Osmolality,Calculated 284.3 MOS/KG (273-304); Potassium 4.4 MMOL/L (3.5-5.1)
[2022-07-12 14:51] LABS: PT Patient Result 21.2 SECS (10.1-12.1); Partial Thromboplastin Time 28.7 SECS (23.7-32.9)
[2022-07-12] MEDS ORDERED: MORPHINE 2 MG/1 ML SYRINGE IV PRN (19:19)
[2022-07-12] MEDS ORDERED: ACETAMINOPHEN 325 MG TABLET PO PRN (19:19)
[2022-07-12] MEDS ORDERED: BACLOFEN 10 MG TABLET PO PRN (19:19)
[2022-07-12] MEDS ORDERED: GLUCAGON 1 MG VIAL IM PRN (19:19)
[2022-07-12] MEDS ORDERED: DEXTROSE 10% 250 ML BAG IV PRN (19:24)
[2022-07-12] MEDS: INSULIN REGULAR 100 UNIT/ML SUBCUT SCH ×2 (20:30→22:12)
[2022-07-12] MEDS: INSULIN NPH/REGULAR 70/30 100 UNIT/ML SUBCUT SCH (20:34)
[2022-07-12] MEDS: PREGABALIN 50 MG CAPSULE PO SCH (22:10)
[2022-07-12] MEDS: POTASSIUM CHLORIDE 20 MEQ TABLET PO SCH (22:10)
[2022-07-12] MEDS: MELATONIN 3 MG TABLET PO SCH (22:11)
[2022-07-12] MEDS: cloNIDine 0.1 MG TABLET PO SCH (22:11)
[2022-07-12] MEDS: FERROUS SULFATE 325 MG TABLET PO SCH (22:11)
[2022-07-12] MEDS: SIMETHICONE CHEW 125 MG TABLET PO SCH (22:11)
[2022-07-12] MEDS: DOCUSATE SODIUM 100 MG CAPSULE PO SCH (22:11)
[2022-07-12] MEDS: FUROSEMIDE 40 MG/4 ML VIAL IV SCH (22:11)
[2022-07-13 04:26] LABS: Basophils % 0.4 % (0.0-0.8); Eosinophils % 0.3 % (0.00-10.9); Hematocrit 37.7 VOL% (35.7-47.0); Hemoglobin 12.1 GM/DL (12.0-16.0); Immature Granulocytes % 0.4 %; Immature Granulocytes Absolute 0.03 #; Lymphocytes # 1.3 10*3/uL (1.4-4.0); Lymphocytes % 17.6 % (21.3-54.2); Mean Corpuscular HGB Conc 32.1 GM/DL (32-36); Mean Corpuscular Volume 74.4 FL (87-102); Monocytes # 0.6 10*3/uL (0.11-0.8); Monocytes % 7.7 % (1.7-12.7); Neutrophils % 73.6 % (38.7-73.9); Platelet Count 153 T/CUMM (130-400); Red Blood Count 5.07 MC/CUMM (3.8-5.5); Red Cell Distribution Width 19.2 % (9.3-17.3); White Blood Count 7.4 T/CUMM (4-12)
[2022-07-13 04:33] LABS: INR 1.8; PT Patient Result 19.3 SECS (10.1-12.1)
[2022-07-13 04:44] LABS: Calcium 9.2 MG/DL (8.5-10.1); Osmolality,Calculated 283.4 MOS/KG (273-304)
[2022-07-13] MEDS: ONDANSETRON 4 MG/2 ML VIAL IV PRN (06:39)
[2022-07-13] MEDS ORDERED: MAGNESIUM SULF RIDER 4 GM/100 ML PREMIX IV ONE (07:38)
[2022-07-13] MEDS ORDERED: WARFARIN 4 MG TABLET PO SCH (09:00)
[2022-07-13] MEDS ORDERED: METOPROLOL SUCCINATE XL 25 MG TABLET PO SCH (09:00)
[2022-07-13] MEDS ORDERED: INSULIN NPH/REGULAR 70/30 100 UNIT/ML SUBCUT SCH (09:00)
[2022-07-13] MEDS: ATORVASTATIN 10 MG TABLET PO SCH (10:33)
[2022-07-13] MEDS: PROMETHAZINE 25 MG TABLET PO PRN ×2 (10:34→15:21)
[2022-07-13] MEDS: FLUoxetine 20 MG CAPSULE PO SCH (10:34)
[2022-07-13] MEDS: CHOLECALCIFEROL 1,000 UNIT TABLET PO SCH (10:34)
[2022-07-13] MEDS: CYANOCOBALAMIN 500 MCG TABLET PO SCH (10:34)
[2022-07-13] MEDS: FERROUS SULFATE 325 MG TABLET PO SCH ×2 (10:34→21:32)
[2022-07-13] MEDS: cloNIDine 0.1 MG TABLET PO SCH ×3 (10:34→21:32)
[2022-07-13] MEDS: POTASSIUM CHLORIDE 20 MEQ TABLET PO SCH ×2 (10:35→21:32)
[2022-07-13] MEDS: PREGABALIN 50 MG CAPSULE PO SCH ×2 (10:35→21:32)
[2022-07-13] MEDS: DULoxetine 30 MG CAPSULE PO SCH (10:35)
[2022-07-13] MEDS: MULTIVITAMIN (CENTRUM) TABLET PO SCH (10:35)
[2022-07-13] MEDS: DOXAZOSIN 1 MG TABLET PO SCH (10:35)
[2022-07-13] MEDS: LORATADINE 10 MG TABLET PO SCH (10:36)
[2022-07-13] MEDS: PANTOPRAZOLE 40 MG TABLET PO SCH (10:36)
[2022-07-13] MEDS: DOCUSATE SODIUM 100 MG CAPSULE PO SCH ×2 (10:36→21:32)
[2022-07-13] MEDS: DILTIAZEM CD 180 MG CAPSULE PO SCH (10:36)
[2022-07-13] MEDS: SIMETHICONE CHEW 125 MG TABLET PO SCH ×4 (10:37→21:32)
[2022-07-13] MEDS: FUROSEMIDE 40 MG/4 ML VIAL IV SCH ×2 (10:39→15:21)
[2022-07-13] MEDS: INSULIN REGULAR 100 UNIT/ML SUBCUT SCH ×4 (12:04→21:33)
[2022-07-13] MEDS: INSULIN NPH/REGULAR 70/30 100 UNIT/ML SUBCUT SCH (18:12)
[2022-07-13] MEDS: MELATONIN 3 MG TABLET PO SCH (21:32)
[2022-07-14 05:28] LABS: Basophils % 0.3 % (0.0-0.8); Eosinophils # 0.2 10*3/uL (0.0-0.87); Eosinophils % 2.3 % (0.00-10.9); Hematocrit 38.6 VOL% (35.7-47.0); Hemoglobin 12.4 GM/DL (12.0-16.0); Immature Granulocytes % 0.1 %; Immature Granulocytes Absolute 0.01 #; Lymphocytes # 1.9 10*3/uL (1.4-4.0); Lymphocytes % 25.3 % (21.3-54.2); Mean Corpuscular HGB Conc 32.1 GM/DL (32-36); Mean Corpuscular Volume 74.1 FL (87-102); Monocytes # 0.8 10*3/uL (0.11-0.8); Monocytes % 10.3 % (1.7-12.7); NRBC # 0.02 10*3/uL; Neutrophils % 61.7 % (38.7-73.9); Platelet Count 161 T/CUMM (130-400); Red Blood Count 5.21 MC/CUMM (3.8-5.5); Red Cell Distribution Width 19.6 % (9.3-17.3); White Blood Count 7.5 T/CUMM (4-12)
[2022-07-14 05:36] LABS: INR 1.3; PT Patient Result 14.3 SECS (10.1-12.1)
[2022-07-14 05:47] LABS: Calcium 8.8 MG/DL (8.5-10.1)
[2022-07-14 05:49] LABS: Hypochromia 1+; Microcytosis 1+; Polychromasia Slight; Target Cells Few; Tear Drop Cells Slight
[2022-07-14 05:50] LABS: Ovalocytes Slight; Platelet Estimate Adequate
[2022-07-14 05:54] LABS: Risk Ratio 2.35; VLDL Cholesterol 14.6 MG/DL
[2022-07-14] MEDS: INSULIN REGULAR 100 UNIT/ML SUBCUT SCH ×4 (08:23→21:44)
[2022-07-14] MEDS ORDERED: METOPROLOL SUCCINATE XL 50 MG TABLET PO SCH (09:00)
[2022-07-14 09:35] LABS: % Iron Saturation 38.1 % (18-50); Ferritin 39.5 ng/mL (8-252)
[2022-07-14] MEDS: FUROSEMIDE 40 MG/4 ML VIAL IV SCH ×2 (10:52→17:45)
[2022-07-14] MEDS: DOCUSATE SODIUM 100 MG CAPSULE PO SCH ×2 (10:53→21:45)
[2022-07-14] MEDS: cloNIDine 0.1 MG TABLET PO SCH ×3 (10:53→21:44)
[2022-07-14] MEDS: FERROUS SULFATE 325 MG TABLET PO SCH ×2 (10:53→21:44)
[2022-07-14] MEDS: POTASSIUM CHLORIDE 20 MEQ TABLET PO SCH ×2 (10:54→21:44)
[2022-07-14] MEDS: SIMETHICONE CHEW 125 MG TABLET PO SCH ×4 (10:54→21:44)
[2022-07-14] MEDS: PREGABALIN 50 MG CAPSULE PO SCH ×2 (10:54→21:44)
[2022-07-14] MEDS ORDERED: REGADENOSON 0.4 MG/5 ML SYRINGE IV ONE (12:21)
[2022-07-14] MEDS: METOCLOPRAMIDE 10 MG/2 ML VIAL IV SCH ×2 (17:37→23:04)
[2022-07-14] MEDS: PANTOPRAZOLE 40 MG TABLET PO SCH (17:47)
[2022-07-14] MEDS: DOXAZOSIN 1 MG TABLET PO SCH (17:47)
[2022-07-14] MEDS: ENOXAPARIN 40 MG/0.4 ML SYRINGE SUBCUT SCH (17:47)
[2022-07-14] MEDS: CYANOCOBALAMIN 500 MCG TABLET PO SCH (17:47)
[2022-07-14] MEDS: DULoxetine 30 MG CAPSULE PO SCH (17:47)
[2022-07-14] MEDS: LORATADINE 10 MG TABLET PO SCH (17:48)
[2022-07-14] MEDS: FLUoxetine 20 MG CAPSULE PO SCH (17:48)
[2022-07-14] MEDS: MULTIVITAMIN (CENTRUM) TABLET PO SCH (17:48)
[2022-07-14] MEDS: ATORVASTATIN 10 MG TABLET PO SCH (17:48)
[2022-07-14] MEDS: CHOLECALCIFEROL 1,000 UNIT TABLET PO SCH (17:48)
[2022-07-14] MEDS: DILTIAZEM CD 180 MG CAPSULE PO SCH (17:48)
[2022-07-14] MEDS: ASPIRIN EC 81 MG TABLET PO SCH (17:49)
[2022-07-14] MEDS: MELATONIN 3 MG TABLET PO SCH (21:44)
[2022-07-15] MEDS: METOCLOPRAMIDE 10 MG/2 ML VIAL IV SCH ×3 (05:12→17:32)
[2022-07-15 05:29] LABS: Basophils % 0.3 % (0.0-0.8); Eosinophils # 0.1 10*3/uL (0.0-0.87); Hematocrit 39.7 VOL% (35.7-47.0); Hemoglobin 12.8 GM/DL (12.0-16.0); Immature Granulocytes % 0.4 %; Immature Granulocytes Absolute 0.04 #; Lymphocytes # 1.8 10*3/uL (1.4-4.0); Mean Corpuscular HGB Conc 32.2 GM/DL (32-36); Monocytes % 9.9 % (1.7-12.7); NRBC # 0.02 10*3/uL; Neutrophils % 71.4 % (38.7-73.9); Platelet Count 177 T/CUMM (130-400); Red Blood Count 5.29 MC/CUMM (3.8-5.5); White Blood Count 10.5 T/CUMM (4-12)
[2022-07-15 05:32] LABS: INR 1.2; PT Patient Result 12.9 SECS (10.1-12.1)
[2022-07-15 05:39] LABS: Calcium 9.3 MG/DL (8.5-10.1); Osmolality,Calculated 289.3 MOS/KG (273-304)
[2022-07-15] MEDS: INSULIN REGULAR 100 UNIT/ML SUBCUT SCH ×4 (08:33→22:56)
[2022-07-15] MEDS: ATORVASTATIN 10 MG TABLET PO SCH (08:34)
[2022-07-15] MEDS: CHOLECALCIFEROL 1,000 UNIT TABLET PO SCH (08:35)
[2022-07-15] MEDS: LORATADINE 10 MG TABLET PO SCH (08:35)
[2022-07-15] MEDS: POTASSIUM CHLORIDE 20 MEQ TABLET PO SCH ×2 (08:35→20:44)
[2022-07-15] MEDS: DULoxetine 30 MG CAPSULE PO SCH (08:35)
[2022-07-15] MEDS: CYANOCOBALAMIN 500 MCG TABLET PO SCH (08:35)
[2022-07-15] MEDS: FLUoxetine 20 MG CAPSULE PO SCH (08:35)
[2022-07-15] MEDS: PANTOPRAZOLE 40 MG TABLET PO SCH (08:35)
[2022-07-15] MEDS: DOXAZOSIN 1 MG TABLET PO SCH (08:36)
[2022-07-15] MEDS: FERROUS SULFATE 325 MG TABLET PO SCH ×2 (08:36→20:45)
[2022-07-15] MEDS: SIMETHICONE CHEW 125 MG TABLET PO SCH ×4 (08:36→22:58)
[2022-07-15] MEDS: ASPIRIN EC 81 MG TABLET PO SCH (08:36)
[2022-07-15] MEDS: DILTIAZEM CD 180 MG CAPSULE PO SCH (08:36)
[2022-07-15] MEDS: MULTIVITAMIN (CENTRUM) TABLET PO SCH (08:36)
[2022-07-15] MEDS: PREGABALIN 50 MG CAPSULE PO SCH ×2 (08:36→20:45)
[2022-07-15] MEDS: DOCUSATE SODIUM 100 MG CAPSULE PO SCH ×3 (08:37→20:50)
[2022-07-15] MEDS: FUROSEMIDE 40 MG/4 ML VIAL IV SCH ×2 (08:40→17:11)
[2022-07-15] MEDS: cloNIDine 0.1 MG TABLET PO SCH ×3 (08:40→20:44)
[2022-07-15] MEDS: METOPROLOL SUCCINATE XL 100 MG TABLET PO SCH (08:52)
[2022-07-15] MEDS: ENOXAPARIN 40 MG/0.4 ML SYRINGE SUBCUT SCH (12:22)
[2022-07-15] MEDS: MELATONIN 3 MG TABLET PO SCH (22:57)
[2022-07-16] MEDS: METOCLOPRAMIDE 10 MG/2 ML VIAL IV SCH ×3 (00:45→11:55)
[2022-07-16 06:03] LABS: Basophils # 0.1 10*3/uL (0.0-0.2); Basophils % 0.7 % (0.0-0.8); Eosinophils # 0.2 10*3/uL (0.0-0.87); Eosinophils % 3.3 % (0.00-10.9); Hematocrit 40.1 VOL% (35.7-47.0); Hemoglobin 12.9 GM/DL (12.0-16.0); Immature Granulocytes % 0.5 %; Immature Granulocytes Absolute 0.04 #; Lymphocytes # 1.4 10*3/uL (1.4-4.0); Lymphocytes % 19.6 % (21.3-54.2); Mean Corpuscular HGB Conc 32.2 GM/DL (32-36); Mean Corpuscular Volume 75.1 FL (87-102); Monocytes # 0.7 10*3/uL (0.11-0.8); Monocytes % 9.7 % (1.7-12.7); Neutrophils % 66.2 % (38.7-73.9); Platelet Count 156 T/CUMM (130-400); Red Blood Count 5.34 MC/CUMM (3.8-5.5); White Blood Count 7.3 T/CUMM (4-12)
[2022-07-16 06:08] LABS: INR 1.1; PT Patient Result 11.9 SECS (10.1-12.1)
[2022-07-16 06:20] LABS: Calcium 9.1 MG/DL (8.5-10.1); Osmolality,Calculated 286.3 MOS/KG (273-304); Potassium 4.1 MMOL/L (3.5-5.1)
[2022-07-16 06:34] LABS: Hypochromia 1+; Microcytosis 1+
[2022-07-16 06:35] LABS: Anisocytosis 1+; Ovalocytes Few; Platelet Estimate Adequate; Polychromasia Slight; Target Cells Slight; Tear Drop Cells Slight
[2022-07-16] MEDS ORDERED: DOXAZOSIN 1 MG TABLET PO SCH (09:00)
[2022-07-16] MEDS: ONDANSETRON 4 MG/2 ML VIAL IV PRN (09:23)
[2022-07-16] MEDS: PROMETHAZINE 25 MG TABLET PO PRN ×2 (09:23→11:54)
[2022-07-16] MEDS: PANTOPRAZOLE 40 MG TABLET PO SCH (09:23)
[2022-07-16] MEDS: PREGABALIN 50 MG CAPSULE PO SCH (11:51)
[2022-07-16] MEDS: CYANOCOBALAMIN 500 MCG TABLET PO SCH (11:51)
[2022-07-16] MEDS: METOPROLOL SUCCINATE XL 100 MG TABLET PO SCH (11:53)
[2022-07-16] MEDS: POTASSIUM CHLORIDE 20 MEQ TABLET PO SCH (11:53)
[2022-07-16] MEDS: FLUoxetine 20 MG CAPSULE PO SCH (11:53)
[2022-07-16] MEDS: DILTIAZEM CD 180 MG CAPSULE PO SCH (11:53)
[2022-07-16] MEDS: FERROUS SULFATE 325 MG TABLET PO SCH (11:54)
[2022-07-16] MEDS: DOCUSATE SODIUM 100 MG CAPSULE PO SCH (11:54)
[2022-07-16] MEDS: DULoxetine 30 MG CAPSULE PO SCH (11:54)
[2022-07-16] MEDS: LORATADINE 10 MG TABLET PO SCH (11:54)
[2022-07-16] MEDS: CHOLECALCIFEROL 1,000 UNIT TABLET PO SCH (11:54)
[2022-07-16] MEDS: MULTIVITAMIN (CENTRUM) TABLET PO SCH (11:54)
[2022-07-16] MEDS: cloNIDine 0.1 MG TABLET PO SCH (11:54)
[2022-07-16] MEDS: FUROSEMIDE 40 MG/4 ML VIAL IV SCH (11:55)
[2022-07-16] MEDS: ASPIRIN EC 81 MG TABLET PO SCH (11:55)
[2022-07-16 12:17] VITALS: BP 161/89
[2022-07-16] MEDS: SIMETHICONE CHEW 125 MG TABLET PO SCH ×2 (12:52→16:37)
[2022-07-16] MEDS: INSULIN REGULAR 100 UNIT/ML SUBCUT SCH (12:52)
[2022-07-16] MEDS: ATORVASTATIN 10 MG TABLET PO SCH (12:52)
[2022-07-16] MEDS ORDERED: WARFARIN 4 MG TABLET PO SCH (18:00)
== END 2022-07-16 14:58 | disposition home health service (06) | DRG 74 ==
LOC: N.ED 13:44 → N.EDINP 13:44 → N.TELES 16:51
PROVIDERS: ADMIT Internal Medicine; ATTEND Internal Medicine

== ENCOUNTER 2022-10-03 12:58 | Observation (INO) ==
[2022-10-03] MEDS ORDERED: ONDANSETRON 4 MG/2 ML VIAL IV STA (14:33)
[2022-10-03] MEDS ORDERED: SODIUM CHLORIDE 0.9% 1,000 ML IV STA (14:33)
[2022-10-03 15:41] LABS: Basophils % 0.4 % (0.0-0.8); Eosinophils % 0.6 % (0.00-10.9); Hematocrit 40.5 VOL% (35.7-47.0); Immature Granulocytes % 0.3 %; Immature Granulocytes Absolute 0.02 #; Lymphocytes # 1.4 10*3/uL (1.4-4.0); Lymphocytes % 21.3 % (21.3-54.2); Mean Corpuscular HGB Conc 32.1 GM/DL (32-36); Mean Corpuscular Volume 77.6 FL (87-102); Monocytes # 0.5 10*3/uL (0.11-0.8); Monocytes % 7.1 % (1.7-12.7); Neutrophils % 70.3 % (38.7-73.9); Platelet Count 140 T/CUMM (130-400); Red Blood Count 5.22 MC/CUMM (3.8-5.5); Red Cell Distribution Width 17.2 % (9.3-17.3); White Blood Count 6.7 T/CUMM (4-12)
[2022-10-03 15:43] LABS: Albumin 3.3 G/DL (3.4-5.0); Bilirubin,Total 0.5 MG/DL (0.20-1.00); Calcium 8.8 MG/DL (8.5-10.1); Osmolality,Calculated 287.1 MOS/KG (273-304); Potassium 4.1 MMOL/L (3.5-5.1); Total Protein 6.4 G/DL (6.4-8.2)
[2022-10-03 15:49] LABS: INR 2.7
[2022-10-03] MEDS ORDERED: cefTRIAXone 1,000 MG in SODIUM CHLORIDE 0.9% 100 ML IV STA (16:00)
[2022-10-03] MEDS ORDERED: ACETAMINOPHEN 325 MG TABLET PO PRN (16:04)
[2022-10-03 17:17] LABS: Bilirubin,Urine Negative (Negative); Blood, Urine Negative (Negative); Glucose,Urine (UA) 250 mg/dL (Negative); Ketones,Urine Negative (Negative); Nitrite,Urine Negative (Negative); Protein,Urine Negative (Negative); Urine Appearance Slightly Cloudy (Clear); Urine Color Yellow (Yellow); Urine Specific Gravity 1.015 (1.001-1.035); Urine pH 6.5 (4.5-8.0)
[2022-10-03 17:20] LABS: Bacteria,Urine Occasional /HPF (Few); Mucus,Urine Occasional /LPF (Occasional); RBC,Urine 2 /HPF (0-4); Squamous Epithelial Cell,Urine Occasional /HPF (0-10); Transitional Epi Cells,Urine Occasional /HPF (<1)
[2022-10-03] MEDS ORDERED: hydrALAZINE 20 MG/1 ML VIAL ONE (17:20)
[2022-10-03] MEDS ORDERED: hydrALAZINE 20 MG/1 ML VIAL IV ONE (17:30)
[2022-10-03] MEDS: SODIUM CHLORIDE 0.9% 1,000 ML IV SCH ×2 (17:40→23:30)
[2022-10-03] MEDS: ONDANSETRON 4 MG/2 ML VIAL IV PRN (18:05)
[2022-10-03] MEDS: DOCUSATE SODIUM 100 MG CAPSULE PO SCH (21:00)
[2022-10-04] MEDS ORDERED: hydrALAZINE 20 MG/1 ML VIAL IV PRN (04:36)
[2022-10-04] MEDS: ONDANSETRON 4 MG/2 ML VIAL IV PRN ×2 (05:25→11:27)
[2022-10-04 08:07] LABS: Basophils % 0.2 % (0.0-0.8); Hematocrit 38.6 VOL% (35.7-47.0); Hemoglobin 12.5 GM/DL (12.0-16.0); Immature Granulocytes % 0.7 %; Immature Granulocytes Absolute 0.06 #; Lymphocytes # 0.9 10*3/uL (1.4-4.0); Lymphocytes % 10.9 % (21.3-54.2); Mean Corpuscular HGB Conc 32.4 GM/DL (32-36); Mean Corpuscular Volume 76.6 FL (87-102); Monocytes # 0.6 10*3/uL (0.11-0.8); Neutrophils % 81.2 % (38.7-73.9); Platelet Count 147 T/CUMM (130-400); Red Blood Count 5.04 MC/CUMM (3.8-5.5); Red Cell Distribution Width 17.4 % (9.3-17.3)
[2022-10-04] MEDS: PANTOPRAZOLE 40 MG TABLET PO SCH (08:10)
[2022-10-04 08:26] LABS: Calcium 8.6 MG/DL (8.5-10.1); Osmolality,Calculated 287.4 MOS/KG (273-304)
[2022-10-04] MEDS: DOCUSATE SODIUM 100 MG CAPSULE PO SCH ×2 (08:33→21:09)
[2022-10-04] MEDS: SODIUM CHLORIDE 0.9% 1,000 ML IV SCH ×2 (08:33→18:11)
[2022-10-04] MEDS ORDERED: busPIRone 5 MG TABLET PO PRN (10:16)
[2022-10-04] MEDS ORDERED: traMADol 50 MG TABLET PO PRN (10:16)
[2022-10-04] MEDS ORDERED: ALBUTEROL/IPRATROPIUM 3 ML NEB RESP TX PRN (10:16)
[2022-10-04] MEDS ORDERED: BUTALBITAL/ACETAMIN/CAFFEINE 50-325-40 MG TABLET PO PRN (10:16)
[2022-10-04] MEDS ORDERED: MELATONIN 3 MG TABLET PO PRN ×2 (10:16→13:09)
[2022-10-04] MEDS: DOXAZOSIN 1 MG TABLET PO SCH (10:43)
[2022-10-04] MEDS: DILTIAZEM CD 180 MG CAPSULE PO SCH (10:43)
[2022-10-04] MEDS: METOPROLOL SUCCINATE XL 25 MG TABLET PO SCH (10:43)
[2022-10-04] MEDS ORDERED: MAGNESIUM SULF RIDER 2 GM/50 ML PREMIX IV ONE (11:00)
[2022-10-04] MEDS: cefTRIAXone 1,000 MG in SODIUM CHLORIDE 0.9% 100 ML IV SCH (16:11)
[2022-10-04] MEDS: BACLOFEN 10 MG TABLET PO SCH ×2 (16:11→21:09)
[2022-10-04] MEDS: WARFARIN 5 MG TABLET PO SCH (18:11)
[2022-10-04] MEDS ORDERED: ONDANSETRON 4 MG/2 ML VIAL IV PRN (18:13)
[2022-10-04] MEDS ORDERED: PROMETHAZINE 25 MG/1 ML VIAL IM PRN (18:13)
[2022-10-04] MEDS: BUDESONIDE 0.25 MG/2 ML NEB RESP TX SCH (20:00)
[2022-10-04] MEDS: POTASSIUM CHLORIDE 20 MEQ TABLET PO SCH (21:08)
[2022-10-04] MEDS: PREGABALIN 50 MG CAPSULE PO SCH (21:09)
[2022-10-05] MEDS: SODIUM CHLORIDE 0.9% 1,000 ML IV SCH ×2 (02:20→12:51)
[2022-10-05 06:04] LABS: Basophils % 0.1 % (0.0-0.8); Eosinophils % 0.4 % (0.00-10.9); Hematocrit 37.1 VOL% (35.7-47.0); Immature Granulocytes % 0.4 %; Immature Granulocytes Absolute 0.03 #; Lymphocytes # 1.1 10*3/uL (1.4-4.0); Lymphocytes % 16.7 % (21.3-54.2); Mean Corpuscular HGB Conc 32.3 GM/DL (32-36); Mean Corpuscular Volume 77.1 FL (87-102); Monocytes # 0.8 10*3/uL (0.11-0.8); Monocytes % 11.9 % (1.7-12.7); NRBC # 0.02 10*3/uL; Neutrophils % 70.5 % (38.7-73.9); Platelet Count 141 T/CUMM (130-400); Red Blood Count 4.81 MC/CUMM (3.8-5.5); Red Cell Distribution Width 17.2 % (9.3-17.3); White Blood Count 6.7 T/CUMM (4-12)
[2022-10-05 06:05] LABS: INR 1.6; PT Patient Result 17.2 SECS (10.1-12.1)
[2022-10-05 06:19] LABS: Calcium 8.4 MG/DL (8.5-10.1); Osmolality,Calculated 289.3 MOS/KG (273-304); Potassium 3.9 MMOL/L (3.5-5.1)
[2022-10-05] MEDS: BUDESONIDE 0.25 MG/2 ML NEB RESP TX SCH ×2 (08:00→18:57)
[2022-10-05] MEDS: DOCUSATE SODIUM 100 MG CAPSULE PO SCH ×2 (08:53→22:16)
[2022-10-05] MEDS: PANTOPRAZOLE 40 MG TABLET PO SCH (08:53)
[2022-10-05] MEDS: ASPIRIN EC 81 MG TABLET PO SCH (08:53)
[2022-10-05] MEDS: POTASSIUM CHLORIDE 20 MEQ TABLET PO SCH ×2 (08:53→22:25)
[2022-10-05] MEDS: LORATADINE 10 MG TABLET PO SCH (08:53)
[2022-10-05] MEDS: PREGABALIN 50 MG CAPSULE PO SCH ×2 (08:53→22:14)
[2022-10-05] MEDS: DILTIAZEM CD 180 MG CAPSULE PO SCH (08:53)
[2022-10-05] MEDS: DOXAZOSIN 1 MG TABLET PO SCH (08:53)
[2022-10-05] MEDS: DULoxetine 30 MG CAPSULE PO SCH (08:53)
[2022-10-05] MEDS: METOPROLOL SUCCINATE XL 25 MG TABLET PO SCH (08:54)
[2022-10-05] MEDS: ALUMINUM/MAGNES/SIMETH MAX STR 30 ML UDCUP PO SCH (08:54)
[2022-10-05] MEDS: BACLOFEN 10 MG TABLET PO SCH ×3 (08:54→22:14)
[2022-10-05] MEDS: INSULIN REGULAR 100 UNIT/ML SUBCUT SCH ×4 (08:58→22:15)
[2022-10-05] MEDS: ATORVASTATIN 10 MG TABLET PO SCH (08:59)
[2022-10-05] MEDS: cefTRIAXone 1,000 MG in SODIUM CHLORIDE 0.9% 100 ML IV SCH (16:21)
[2022-10-05] MEDS: WARFARIN 5 MG TABLET PO SCH (17:06)
[2022-10-05] MEDS ORDERED: GLUCAGON 1 MG VIAL IM PRN (17:14)
[2022-10-05] MEDS ORDERED: DEXTROSE 10% 250 ML BAG IV PRN (17:17)
[2022-10-05] MEDS ORDERED: INSULIN NPH/REG 70/30 100 UNIT/ML SUBCUT SCH (21:00)
[2022-10-06] MEDS: SODIUM CHLORIDE 0.9% 1,000 ML IV SCH (01:59)
[2022-10-06 05:44] LABS: Basophils % 0.3 % (0.0-0.8); Eosinophils # 0.2 10*3/uL (0.0-0.87); Eosinophils % 2.4 % (0.00-10.9); Hematocrit 35.8 VOL% (35.7-47.0); Hemoglobin 11.6 GM/DL (12.0-16.0); Immature Granulocytes % 0.6 %; Immature Granulocytes Absolute 0.04 #; Lymphocytes # 1.1 10*3/uL (1.4-4.0); Lymphocytes % 17.4 % (21.3-54.2); Mean Corpuscular HGB Conc 32.4 GM/DL (32-36); Mean Corpuscular Volume 76.7 FL (87-102); Monocytes # 0.7 10*3/uL (0.11-0.8); Monocytes % 11.2 % (1.7-12.7); Neutrophils % 68.1 % (38.7-73.9); Platelet Count 139 T/CUMM (130-400); Red Blood Count 4.67 MC/CUMM (3.8-5.5); Red Cell Distribution Width 17.2 % (9.3-17.3); White Blood Count 6.5 T/CUMM (4-12)
[2022-10-06 05:51] LABS: PT Patient Result 21.1 SECS (10.1-12.1)
[2022-10-06 06:05] LABS: Hypochromia Slight; Microcytosis 1+; Ovalocytes Few
[2022-10-06 06:06] LABS: Platelet Estimate Adequate; Target Cells Slight; Tear Drop Cells Slight
[2022-10-06 06:10] LABS: Calcium 8.6 MG/DL (8.5-10.1); Osmolality,Calculated 291.7 MOS/KG (273-304)
[2022-10-06] MEDS: BUDESONIDE 0.25 MG/2 ML NEB RESP TX SCH (07:52)
[2022-10-06] MEDS: DOXAZOSIN 1 MG TABLET PO SCH (08:34)
[2022-10-06] MEDS: ALUMINUM/MAGNES/SIMETH MAX STR 30 ML UDCUP PO SCH (08:34)
[2022-10-06] MEDS: POTASSIUM CHLORIDE 20 MEQ TABLET PO SCH (08:36)
[2022-10-06] MEDS: PREGABALIN 50 MG CAPSULE PO SCH (08:37)
[2022-10-06] MEDS: LORATADINE 10 MG TABLET PO SCH (08:37)
[2022-10-06] MEDS: PANTOPRAZOLE 40 MG TABLET PO SCH (08:37)
[2022-10-06] MEDS: ATORVASTATIN 10 MG TABLET PO SCH (09:00)
[2022-10-06] MEDS: ASPIRIN EC 81 MG TABLET PO SCH (09:00)
[2022-10-06] MEDS: BACLOFEN 10 MG TABLET PO SCH ×2 (09:00→16:13)
[2022-10-06] MEDS ORDERED: INSULIN NPH/REG 70/30 100 UNIT/ML SUBCUT SCH (09:00)
[2022-10-06] MEDS: DOCUSATE SODIUM 100 MG CAPSULE PO SCH (09:00)
[2022-10-06] MEDS: METOPROLOL SUCCINATE XL 25 MG TABLET PO SCH (09:00)
[2022-10-06] MEDS: DILTIAZEM CD 180 MG CAPSULE PO SCH (09:00)
[2022-10-06] MEDS: DULoxetine 30 MG CAPSULE PO SCH (09:00)
[2022-10-06] MEDS: INSULIN REGULAR 100 UNIT/ML SUBCUT SCH ×2 (09:47→11:50)
[2022-10-06 16:09] VITALS: BP 185/94
== END 2022-10-06 17:26 | disposition home health service (06) ==
LOC: N.EDINP 12:58 → N.ED 12:58 → N.2W 17:55
PROVIDERS: ADMIT Internal Medicine; ATTEND Internal Medicine